=== PATIENT | male | born 1960 | race African-American/Black ===

== ENCOUNTER 2017-08-26 12:46 | Day surgery (SDC) | payer MEDICARE, MEDICAID ==
[~2017-08-26] VITALS: Ht 180.3 cm; Wt 88.5 kg
[~2017-08-26 12:46] MED LIST: AMLODIPINE BESY10 MG PO; AMOXICILLIN250 M1 PO; ASPIRIN EC81 MG PO; BENAZEPRIL HCL20 MG PO; CIALIS10 MG PO; CLINDAMYCIN HC300 MG PO; CLONIDINE0.1 MG PO; CYCLOBENZAPR10 MG PO; DURAGESIC25 MCG/PAT TD; FISH OIL1000 MG PO; FLEXERIL10 MG PO; FLEXERIL5 MG PO; GNP OMEPRAZOLE20 MG PO; HYDROCHLOROT25 MG PO; LORTAB 7.57.5 MG PO; OXYCOD/APAP1 TA4 PO; OXYCODO-APAP1 TA2 PO; RESTORIL15 MG PO; ROPINIROLE0.5 MG PO; SERTRALINE50 MG PO; SIMVASTATIN40 MG PO; VITAMIN D1000 UNIT PO
[2017-08-26 14:34] LABS: BARBITURATES NEGATIVE (NEGATIVE); COCAINE NEGATIVE (NEGATIVE); METHADONE NEGATIVE (NEGATIVE); OXCYCODONE NEGATIVE (NEGATIVE); TETRAHYDROCANNABIONOL NEGATIVE (NEGATIVE); TRICYLIC ANTIDEPRESSANTS NEGATIVE (NEGATIVE)
[2017-08-26 16:32] VITALS: BP 129/56
== END 2017-08-26 16:30 | disposition home or self-care (01) ==
LOC: ENDO 12:46
PROVIDERS: ATTEND Internal Medicine Gastroenterology
PROC: 0DBH8ZX Excision of Cecum, Via Natural or Artificial Opening Endoscopic, Diagnostic (ICD-10-PCS; principal; 2017-08-26)
DX: Z12.11 Encounter for screening for malignant neoplasm of colon (principal); D12.0 Benign neoplasm of cecum; K64.4 Residual hemorrhoidal skin tags; K64.8 Other hemorrhoids; K21.9 Gastro-esophageal reflux disease without esophagitis; I10 Essential (primary) hypertension; E78.00 Pure hypercholesterolemia, unspecified

== ENCOUNTER 2017-10-07 13:17 | Day surgery (SDC) | payer MEDICARE ==
[~2017-10-07] VITALS: Ht 180.3 cm; Wt 86.2 kg
[2017-10-07 15:52] VITALS: BP 137/83
== END 2017-10-07 15:50 | disposition home or self-care (01) ==
LOC: ENDO 13:17
PROVIDERS: ATTEND Internal Medicine Gastroenterology
PROC: 0DB48ZX Excision of Esophagogastric Junction, Via Natural or Artificial Opening Endoscopic, Diagnostic (ICD-10-PCS; principal; 2017-10-07)
DX: K21.0 Gastro-esophageal reflux disease with esophagitis (principal); K29.70 Gastritis, unspecified, without bleeding; K44.9 Diaphragmatic hernia without obstruction or gangrene; K64.8 Other hemorrhoids; I10 Essential (primary) hypertension; E78.00 Pure hypercholesterolemia, unspecified; Z86.010 Personal history of colon polyps; Z79.899 Other long term (current) drug therapy